=== PATIENT | female | born 2005 | race American Indian/Alaskan Native ===

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

== ENCOUNTER 2025-03-23 20:16 | Emergency (ER) | payer MEDICAID, SELFPAY ==
[2025-03-23 20:34] VITALS: BP 129/76; PULSE 98; RESP 16; TEMP 37.3
[2025-03-23 20:38] VITALS: BP 129/76; PULSE 98; RESP 16; TEMP 37.3; O2SAT 98
--- NOTE | 2025-03-23 21:46 | W.ED.GENAD ---
Discharge Plan Disposition Patient Disposition: Home Discharge Details Clinical Impression: Pharyngitis Primary Care Provider: Unknown,Unknown ED Provider: Abbey German Home Meds and New Rx's Prescriptions: No Action No Known Home Meds Discharge Instructions Instructions: Sore Throat, Adult ED Additional Instructions: Your strep test today was negative. Symptoms are likely caused by allergies or viral illness. You may follow-up with express care for reassessment if you continue to have sore throat by early next week. Stay well-hydrated, drinking plenty of fluids well today. Ice drinks may be most comfortable. For comfort you may use Tylenol 650 mg every 6 hours or ibuprofen 600 mg every 8 hours. You may alternate these as needed. Cough drops may be helpful for discomfort, especially the kind with menthol. Return to emergency care if you develop new difficulty swallowing/drooling, difficulty breathing, swelling on one side of your neck, muffled voice, high fevers associated with sore throat, difficulty opening your mouth, or if you are very worried and need to be rechecked again immediately Discharge Data Discharge Date/Time-TO BE ENTERED AT DEPARTURE: 03/23/25 22:15 HPI General Date/Time Provider Initiated Documentation: 03/23/25 21:41. HPI Narrative: Darshana is a 19-year-old female who presents to the emergency department for evaluation of sore throat and headache for 3 days. No recent exposure to strep, influenza, or COVID-19. Reports chronic nasal congestion but no nasal congestion or runny nose currently. No cough, nausea/vomiting, abdominal pain, rashes, change in bowel or bladder function. Denies significant past medical history. No history of GI bleeding or bleeding disorders. Establishing care at [facility]. History of postnasal drip.. No cardiac, pulmonary, or diabetic conditions. Related Data Home Medications ?Medication ?Instructions ?Recorded ?Confirmed Unknown [No Known Home Meds] 03/23/25 03/23/25 Allergies Allergy/AdvReac Type Severity Reaction Status Date / Time animal dander Allergy sneezing, Verified 03/23/25 20:40 itching General Stated Complaint: Sorethroat ARELY: 4 Review of Systems Narrative: See HPI Exam Narrative Exam Narrative: General Appearance: Normal. Patient alert and oriented, no acute distress. Easily conversational. Vital signs: Within normal limits. HEENT: Moist mucous membranes. No cervical or submandibular lymphadenopathy. Clear voice. No trismus, tonsillar erythema, exudate, or hypertrophy. Respiratory: Easy breathing, able to speak in full sentences. Lymphatic: No cervical or submandibular lymphadenopathy. Back, Musculoskeletal: Full painless neck ROM. Skin: Warm and dry, no rash. Psychiatric: Normal. Course Vital Signs Vital signs: Vital Signs Temperature 37.3 C 03/23/25 20:34 Pulse 98 H 03/23/25 20:34 Respiratory Rate 16 03/23/25 20:34 Blood Pressure 129/76 03/23/25 20:34 Temperature 37.3 C 03/23/25 20:38 Temperature Source Oral 03/23/25 20:38 Pulse 98 H 03/23/25 20:38 Respiratory Rate 16 03/23/25 20:38 Blood Pressure 129/76 03/23/25 20:38 Blood Pressure Position Sitting 03/23/25 20:38 Pulse Oximetry 98 03/23/25 20:38 Oxygen Delivery Method Room Air 03/23/25 20:38 Oxygen Flow Rate 0 03/23/25 20:34 Pain Level 6 03/23/25 20:34 Lab/Test Results Lab/Test Results: 03/23/25 20:40 Pharynx Group A Streptococcus Culture - Pending POC Strep Test-MATT(Rapid) Start: 03/23/25 20:59 Freq: .Rapid Strep Test Status: Active Protocol: Document 03/23/25 21:00 (Rec: 03/23/25 21:00 [id number]) Strep test-MATT(Rapid)-POC POC-Strep test-MATT (Rapid) Negative POC-Strep test-MATT (Rapid) Negative Medical Decision Making Initial Assessment: Darshana is a 19-year-old female presenting with a sore throat and headache for the past couple of days. No congestion, cough, nausea, vomiting, or rashes. Negative strep test. DDx includes was not limited to: Viral pharyngitis, allergic pharyngitis, strep throat. No red flags concerning for deep space infection, systemic infection, or airway compromise at this time indicating need for diagnostic imaging or blood work. Vital signs reassuring, patient does not meet SIRS criteria ED Course: - Strep test negative. - Recommended continuation of cough drops. - Advised Tylenol and ibuprofen (3 tablets TID). - Suggested cold drinks and avoidance of acidic/spicy foods. - Recommended follow-up if no improvement by Friday at [facility] or return to ED. - Advised monitoring for high fevers, difficulty swallowing, drooling, trouble breathing, unilateral neck swelling, muffled voice, or other concerning symptoms. I independently interpreted the following tests: Rapid strep negative. Final Assessment: Likely viral or allergic pharyngitis. Treatment includes symptom management with cough drops, Tylenol, and ibuprofen. Cold drinks and avoidance of irritating foods recommended. Follow-up if symptoms persist or worsen. Clinical Impression: - Pharyngitis Disposition: - Discharge - Follow-Up: Seek further medical attention at [facility] or return to ED if no improvement by Friday. Patient Education: Discussed symptom management, medication use, and signs to monitor for worsening condition. Patient consented to the use of LU Quality:SDOH Health Related Social Needs: No Data to Display [facility] All Active Problems (Updated 03/23/25 @ 21:43 by Abbey Kirk) Pharyngitis (Acute) COVID-19 (Acute) Social History Smoking risk assessment performed?: No Alcohol Intake: never Drug use: Never Substance use type: does not use Do you feel safe at home: Yes Do you feel safe in your relationship?: Yes
[2025-03-23 22:14] VITALS: BP 120/82; PULSE 88; RESP 20; TEMP 37; O2SAT 99
== END 2025-03-23 22:15 | disposition home or self-care (01) ==
PROVIDERS: Emergency Provider Nurse Practitioner Family
DX: J02.9 Acute pharyngitis, unspecified (principal)
CPT/HCPCS: 99283; 99282; 87880; 87081